=== PATIENT | female | born 2000 ===

== ENCOUNTER 2023-12-16 12:58 | Outpatient (CLI) | payer BC, SELFPAY ==
--- NOTE | ~2023-12-16 | US_ITS ---
Pelvic ultrasound. Clinical History: First trimester , vaginal spotting Technique: Realtime transvaginal scanning of the pelvis was performed. Color flow Doppler and Doppler spectral analysis were performed. Findings: The uterus is anteverted, and contains an intrauterine gestation. [place]-rump length of 2.3 cm corresponds to an estimated gestational age of 9 weeks 0 days. heart rate is 171 bpm. Yolk s ac present.. Neither ovary seen. No adnexal mass seen. There is no evidence of free fluid in the cul de sac. Impression: Live intrauterine gestation, with estimated gestational age of 9 weeks 0 days. heart rate is 17 1 bpm. Reviewed, dictated and finalized at location . Impression: Live intrauterine gestation, with estimated gestational age of 9 weeks 0 days. heart rate is 171 bpm.
== END 2023-12-16 12:59 ==
LOC: GOSHIMG 13:03
PROVIDERS: PCP Obstetrics & Gynecology Gynecology; Visit Provider Obstetrics & Gynecology Gynecology
DX: O26.851 Spotting complicating pregnancy, first trimester (principal); Z36.87 Encounter for antenatal screening for uncertain dates; Z3A.09 9 weeks gestation of pregnancy
CPT/HCPCS: 76817